=== PATIENT | male | born 1980 | race Two or more races ===

== ENCOUNTER → 2025-01-02 | Outpatient (CLI) | payer OTHER, BC, SELFPAY ==
[2025-01-02 17:28] LABS: Misc Send Out* See Sep Rpt
[2025-01-02 17:41] LABS: Basophils % (Auto) 1 % (0-2.5); Eosinophils # (Auto) 0.1 Thou/mm3 (0.0-0.5); Eosinophils % (Auto) 1 % (0-10); Hematocrit 46.4 % (41.0-53.0); Hemoglobin 17.2 g/dL (13.5-16.0); Immature Granulocytes % (Auto) 0 % (0-0); Immature Granulocytes Auto 0.02 Thou/mm3 (0.00-0.00); Lymphocytes # (Auto) 1.7 Thou/mm3 (1.0-4.8); Lymphocytes % (Auto) 26 % (10-50); Mean Corpuscular HGB Conc 37.1 g/dl (31.0-37.0); Mean Corpuscular Hemoglobin 31.6 pg (25.0-35.0); Mean Corpuscular Volume 85 fL (80-100); Monocytes # (Auto) 0.5 Thou/mm3 (0.0-0.8); Monocytes % (Auto) 7 % (0-12); Neutrophils # (Auto) 4.3 Thou/mm3 (1.8-7.7); Neutrophils % (Auto) 65 % (37-80); Nucleated Red Blood Cell % 0 /100 WBC (0); Platelet Count 170 Thou/mm3 (140-440); RDW Standard Deviation 39.3 fL (35.1-43.9); Red Blood Count 5.44 Miln/mm3 (4.50-5.90); White Blood Count 6.6 Thou/mm3 (3.8-10.6)
[2025-01-02 17:54] LABS: Sed Rate (ESR) 1 mm/hr (0-15)
[2025-01-02 18:10] LABS: Alanine Aminotransferase 50 U/L (10-49); Albumin, Serum 4.9 gm/dL (3.5-5.0); Alkaline Phosphatase 48 U/L (46-116); Anion Gap 9 (7-16); Aspartate Amino Transferase 25 U/L (0-34); BUN/Creatinine Ratio 10 Ratio (12-20); Bilirubin,Total 0.8 mg/dL (0.3-1.2); Blood Urea Nitrogen 13 mg/dL (9-23); Calcium 9.2 mg/dL (8.3-10.6); Calcium (Corrected) 9.2 mg/dL (8.5-10.1); Carbon Dioxide 29.4 mMol/L (20.0-31.0); Chloride 104 mMol/L (98-107); Creatinine (Component) 1.3 mg/dL (0.6-1.3); Globulin 2.5 gm/dL (2.3-3.5); Glucose 86 mg/dL (74-106); Osmolality,Calculated 282 (275-295); Potassium 4.2 mMol/L (3.4-5.1); Sodium 142 mMol/L (136-145); Total Protein 7.4 gm/dL (5.7-8.2); eGFR > 60 See Note
[2025-01-14 07:09] LABS: Immunoglobulin A 172 mg/dL (47-310); hs-CRP* 2.5 mg/L; tTG Ab, IgA <1.0 U/mL
== END | disposition home or self-care (01) ==
PROVIDERS: PCP Internal Medicine; Referring Provider Specialist; Visit Provider Specialist
DX: K63.4 Enteroptosis (principal); R10.9 Unspecified abdominal pain
CPT/HCPCS: 36415; 80053; 82784; 85025; 85652; 86141; 86364

== ENCOUNTER → 2025-01-03 | Outpatient (CLI) | payer OTHER, BC, SELFPAY ==
[2025-01-14 07:24] LABS: Calprotectin, Stool* 9 mcg/g
== END | disposition home or self-care (01) ==
LOC: SLDO 16:34
PROVIDERS: Referring Provider Specialist; Visit Provider Specialist
DX: K63.4 Enteroptosis (principal); R10.9 Unspecified abdominal pain
CPT/HCPCS: 83993

== ENCOUNTER 2025-01-21 11:55 | Day surgery (SDC) | payer OTHER, BC, SELFPAY ==
[2025-01-21] VITALS (13 sets, daily range): BP systolic 101–131; BP diastolic 54–83; PULSE 68–89; RESP 12–20; TEMP 36.2–36.8; O2SAT 97–100; BMI 24.8
[2025-01-21] MEDS: DiphenhydrAMINE INJ 50 MG/ML VIAL 25 MG IVP (13:41)
[2025-01-21] MEDS: MIDAZOLAM INJ 1 MG/ML VIAL 2 ML (ASD USE ONLY) 2 MG IVP (14:08)
[2025-01-21] MEDS: SODIUM CHLORIDE 0.9% 500 ML 500 ML 20 ML IV (14:08)
[2025-01-21] MEDS: fentaNYL CIT INJ 50 mCg/ML AMP 2ML (ASD USE ONLY) IVP (14:10)
[2025-01-21] MEDS: BENZOCAINE 20% (Hurricaine) SPRAY 1 DOSE TOP (14:11)
== END 2025-01-21 15:00 | disposition home or self-care (01) ==
PROVIDERS: PCP Internal Medicine; Referring Provider Specialist; Visit Provider Specialist
PROC: 0DBE8ZX Excision of Large Intestine, Via Natural or Artificial Opening Endoscopic, Diagnostic (ICD-10-PCS; CPT 45380; principal; 2025-01-21 13:30)
PROC: (CPT 43239; 2025-01-21 13:30)
DX: K64.3 Fourth degree hemorrhoids (principal); K52.9 Noninfective gastroenteritis and colitis, unspecified; K63.89 Other specified diseases of intestine; K62.89 Other specified diseases of anus and rectum; Z80.0 Family history of malignant neoplasm of digestive organs; R19.7 Diarrhea, unspecified; K76.0 Fatty (change of) liver, not elsewhere classified; R16.0 Hepatomegaly, not elsewhere classified
CPT/HCPCS: 46221; 45380; A4649; J1200; J2250; J3010; J7040; A9270